=== PATIENT | female | born 1965 | race African-American/Black ===

== ENCOUNTER 2023-08-13 03:55 | Inpatient (IN) | payer OTHER ==
[2023-08-13 04:12] VITALS: BMI 32.4
[2023-08-13] MEDS ORDERED: BENZOCAINE/MENTHOL (CHLORASEPTIC ) LOZENGE MM PRN (04:38)
[2023-08-13] MEDS ORDERED: BENZONATATE 200 MG CAPSULE PO PRN (04:38)
[2023-08-13] MEDS ORDERED: guaiFENesin 600 MG TABLET.ER (FP) PO PRN (04:38)
[2023-08-13] MEDS ORDERED: ONDANSETRON *ODT* 4 MG TABLET SL PRN (04:38)
[2023-08-13] MEDS ORDERED: POLYETHYLENE GLYCOL (HEALTHYLAX) 3350 17 GM PACKET PO PRN (04:38)
[2023-08-13] MEDS ORDERED: NALOXONE HCL (KLOXXADO) 8 MG SPRAY NS PRN (04:38)
[2023-08-13] MEDS ORDERED: NALOXONE HCL 0.4 MG/ML VIAL IM PRN (04:38)
[2023-08-13] MEDS ORDERED: ACETAMINOPHEN 325 MG TABLET (FP) PO PRN (04:38)
[2023-08-13] MEDS ORDERED: MAGNESIUM HYDROX 2400MG/30ML ORAL SUSPENSION 30 ML CUP PO PRN (04:38)
[2023-08-13] MEDS ORDERED: IBUPROFEN 400 MG TABLET (FP) PO PRN (04:38)
[2023-08-13] MEDS ORDERED: MAG HYDROX/AL HYDROX/SIMETH 30 ML UNIT-DOSE CUP PO PRN (04:38)
[2023-08-13] MEDS ORDERED: LOPERAMIDE HCL 2 MG CAPSULE PO PRN (04:38)
[2023-08-13] MEDS ORDERED: BISMUTH SUBSALICYLATE 524 MG/30 ML PO PRN (04:38)
[2023-08-13] MEDS ORDERED: DICYCLOMINE HCL 10 MG CAPSULE PO PRN (04:38)
[2023-08-13] MEDS ORDERED: NICOTINE POLACRILEX 2 MG GUM BUC PRN (04:38)
[2023-08-13] MEDS ORDERED: IBUPROFEN 600 MG TABLET (FP) PO PRN (04:38)
[2023-08-13] MEDS: PRENATAL VITAMINS W/ FOLIC ACID TABLET (FP) PO SCH (09:08)
[2023-08-13] MEDS: NICOTINE 14 MG/24 HOURS TOPICAL PATCH TD SCH (09:13)
[2023-08-13 09:39] LABS: HEMATOCRIT 36.6 % (32.4-45.2); HEMOGLOBIN 12.4 GM/dL (10.7-15.3); MCH 31.6 pg (25.7-33.7); MCHC 33.8 g/dl (32.0-36.0); MEAN CELL VOLUME 93.7 fl (80-96); MEAN PLT VOLUME 9.2 fl (7.5-11.1); PLATELET COUNT 310 10^3/uL (134-434); RBC 3.91 M/mm3 (3.60-5.2); RDW 13.6 % (11.6-15.6); WHITE BLOOD COUNT 6.4 K/mm3 (4.0-10.0)
[2023-08-13 09:41] LABS: CHLORIDE 111 mmol/L (98-107); POTASSIUM 3.6 mmol/L (3.5-5.1); SODIUM 142 mmol/L (136-145)
[2023-08-13 09:48] LABS: ALBUMIN 3.1 g/dl (3.4-5.0); CREATININE 0.7 mg/dL (0.55-1.3); GLUCOSE,RANDOM 116 mg/dL (74-106); SGOT/AST 44 U/L (15-37)
[2023-08-13 09:49] LABS: ANION GAP 5 mmol/L (4-13); CO2 26 mmol/L (21-32)
[2023-08-13 09:50] LABS: BILIRUBIN,TOTAL 0.3 mg/dL (0.2-1); CALCIUM 8.8 mg/dL (8.5-10.1); TOT PROT 6.3 g/dl (6.4-8.2)
[2023-08-13 09:51] LABS: ALK PHOS 64 U/L (45-117); SGPT/ALT 73 U/L (13-61)
[2023-08-13] MEDS: hydrOXYzine PAMOATE 25 MG CAPSULE (FP) PO PRN (18:02)
[2023-08-13] MEDS: THIAMINE HCL 100 MG TABLET (FP) PO SCH (22:17)
[2023-08-13] MEDS: MELATONIN 5 MG TABLETS PO SCH (22:17)
[2023-08-14] MEDS: hydrOXYzine PAMOATE 25 MG CAPSULE (FP) PO PRN ×2 (05:39→17:43)
[2023-08-14] MEDS: PRENATAL VITAMINS W/ FOLIC ACID TABLET (FP) PO SCH (10:13)
[2023-08-14] MEDS: NICOTINE 14 MG/24 HOURS TOPICAL PATCH TD SCH (10:14)
[2023-08-14] MEDS: MELATONIN 5 MG TABLETS PO SCH (22:27)
[2023-08-14] MEDS: THIAMINE HCL 100 MG TABLET (FP) PO SCH (22:33)
[2023-08-15] MEDS: hydrOXYzine PAMOATE 25 MG CAPSULE (FP) PO PRN (08:57)
[2023-08-15] MEDS: PRENATAL VITAMINS W/ FOLIC ACID TABLET (FP) PO SCH (10:22)
[2023-08-15] MEDS: NICOTINE 14 MG/24 HOURS TOPICAL PATCH TD SCH (10:22)
[2023-08-15] MEDS ORDERED: cloNIDine HCL 0.1 MG TABLET PO ONE (13:18)
[2023-08-15 14:33] VITALS: BP 123/83; PULSE 88
[2023-08-15 14:45] VITALS: RESP 16; TEMP 97.3
== END 2023-08-15 15:05 | disposition other institution (70) | DRG 774 ==
LOC: YASAS 03:55 → Y3N 04:28
PROVIDERS: ADMIT Allergy & Immunology; ATTEND Allergy & Immunology
PROC: HZ2ZZZZ Detoxification Services for Substance Abuse Treatment (ICD-10-PCS; principal; 2023-08-13)
DX: F10.20 Alcohol dependence, uncomplicated (principal); F14.10 Cocaine abuse, uncomplicated; F17.210 Nicotine dependence, cigarettes, uncomplicated; I10 Essential (primary) hypertension
CPT/HCPCS: 36415; 80053; 80307; 82962; 85027; 86780; 87635; 87811; 93005; 93010

== ENCOUNTER → 2024-03-01 | Day surgery (SDC) | payer OTHER | END | disposition home or self-care (01) | LOC: JRADIR 10:23 | PROVIDERS: ATTEND Internal Medicine Endocrinology, Diabetes & Metabolism | PROC: 0G9K3ZX Drainage of Thyroid Gland, Percutaneous Approach, Diagnostic (ICD-10-PCS; principal; 2024-03-01) | DX: E04.1 Nontoxic single thyroid nodule (principal) | CPT/HCPCS: 10005; 76942; 88173; 88305-TC ==

== ENCOUNTER → 2024-03-21 | Day surgery (SDC) | payer OTHER | END | disposition home or self-care (01) | LOC: JRADIR 10:38 | PROVIDERS: ATTEND Internal Medicine Endocrinology, Diabetes & Metabolism | PROC: 0G9G3ZX Drainage of Left Thyroid Gland Lobe, Percutaneous Approach, Diagnostic (ICD-10-PCS; principal; 2024-03-21) | DX: E04.1 Nontoxic single thyroid nodule (principal) | CPT/HCPCS: 10005; 76942; 88173; 88305-TC ==